=== PATIENT | male | born 1975 | race Caucasian/White ===

== ENCOUNTER 2017-07-24 14:58 | Emergency (ER) | payer OTHER ==
[~2017-07-24] VITALS: Ht 177.8 cm; Wt 72.8 kg
[2017-07-24 15:07] VITALS: BP 114/59; PULSE 103; RESP 16; TEMP 98.7; O2SAT 96
[2017-07-24] MEDS ORDERED: SODIUM CHLORIDE 0.9% FLUSH 10 ML FLUSH IV FLUSH PRN (15:15)
[2017-07-24 15:30] VITALS: RESP 18; O2SAT 95
[2017-07-24] MEDS ORDERED: KETOROLAC TROMETHAMINE 30 MG/ML (IVP) VIAL IV PUSH ONE (15:30)
[2017-07-24 15:53] LABS: AUTOMATED NEUTROPHIL # 6.4 TH/MM3 (1.8-7.7); BASOPHIL # 0.4 TH/MM3 (0-0.2); BASOPHIL % 3.4 % (0.0-2.0); EOSINOPHIL # 0.4 TH/MM3 (0-0.4); EOSINOPHIL % 3.7 % (0.0-4.0); HEMATOCRIT 44.3 % (39.0-51.0); HEMOGLOBIN 15.1 GM/DL (13.0-17.0); LYMPH % 19.8 % (9.0-44.0); MEAN CELL VOLUME 93.5 FL (80.0-100.0); MEAN CORPUSCULAR HEMOGLOBIN 31.9 PG (27.0-34.0); MEAN CORPUSCULAR HGB CONC 34.2 % (32.0-36.0); MEAN PLATELET VOLUME 8.1 FL (7.0-11.0); MONO % 10.2 % (0.0-8.0); MONOCYTE # 1.1 TH/MM3 (0-0.9); NEUT % 62.9 % (16.0-70.0); PLATELET COUNT 230 TH/MM3 (150-450); RED BLOOD COUNT 4.74 MIL/MM3 (4.50-5.90); RED CELL DISTRIBUTION WIDTH 12.7 % (11.6-17.2); WHITE BLOOD COUNT 10.3 TH/MM3 (4.0-11.0)
[2017-07-24 16:05] LABS: CHLORIDE 104 MEQ/L (98-107); SODIUM (NA) 137 MEQ/L (136-145)
[2017-07-24 16:08] LABS: CALCIUM 8.9 MG/DL (8.5-10.1)
[2017-07-24 16:09] LABS: ALBUMIN 3.9 GM/DL (3.4-5.0); BICARBONATE 25.9 MEQ/L (21.0-32.0); BLOOD UREA NITROGEN 18 MG/DL (7-18); GLUCOSE,RANDOM 91 MG/DL (74-106)
[2017-07-24 16:12] LABS: ALT (GPT) 14 U/L (12-78); AST (GOT) 26 U/L (15-37); GLOMERULAR FILTRATION RATE 82 ML/MIN (>89)
[2017-07-24 16:13] LABS: TOTAL BILIRUBIN ADULT 0.4 MG/DL (0.2-1.0)
[2017-07-24 16:14] LABS: TOTAL PROTEIN 7.4 GM/DL (6.4-8.2)
[2017-07-24 16:15] LABS: ALKALINE PHOSPHATASE 62 U/L (45-117)
--- NOTE | 2017-07-24 16:25 | PD ---
HPI Chief Complaint: Abdominal Pain Time Seen by Provider: 15:23 Travel History International Travel<30 days: No Contact w/Intl Traveler<30days: No Traveled to known affect area: No History of Present Illness HPI Patient 42-year-old male presents emergency department for evaluation of right upper quadrant abdominal pain on and off for the past few weeks bordering a months. Patient states that the pain became fairly severe over the past 2 nights, doubling him over and causing some diaphoresis as well as nausea and a few episodes of nonbilious nonbloody emesis. He is also endorsing some nonbilious and no melanotic stools which are loose. States currently the pain is still there but not as severe as it was before. 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 States he has never had any cholecystitis, kidney stones. Denies any chest pain shortness of breath. States the pain waxing and waning, duration as above , associated signs and symptoms as above, no radiation. PFSH Past Medical History Medical History: Denies Significant Hx Tetanus Vaccination: < 5 Years Influenza Vaccination: No Social History Alcohol Use: Yes (WEEKENDS) Tobacco Use: Yes (1PPD ) Substance Use: No Allergies-Medications (Allergen,Severity, Reaction): Coded Allergies: amoxicillin (Verified Allergy, Intermediate, rash, 07/24/17) Penicillins (Verified Allergy, Unknown, 07/24/17) Reported Meds & Prescriptions Reported Meds & Active Scripts Active Pepcid (Famotidine) 20 Mg Tab 20 Mg PO BID Zofran (Ondansetron HCl) 4 Mg Tab 4 Mg PO Q6HR PRN Review of Systems Except as stated in HPI: all other systems reviewed are Neg Physical Exam Narrative GENERAL: Well-developed well-nourished, thin, smells of cigarette smoke in obvious distress sitting upright in a stretcher and seen ambulating to the exam room texting on his cell phone SKIN: Focused skin assessment warm/dry. HEAD: Atraumatic. Normocephalic. EYES: Pupils equal and round. No scleral icterus. No injection or drainage. ENT: No nasal bleeding or discharge. Mucous membranes pink and moist. NECK: Trachea midline. No JVD. CARDIOVASCULAR: Regular rate and rhythm. No murmur appreciated. RESPIRATORY: No accessory muscle use. Clear to auscultation. Breath sounds equal bilaterally. GASTROINTESTINAL: Abdomen soft, minimally tender in the right upper quadrant but his Szymanski sign is negative, nondistended. Hepatic and splenic margins not palpable. CVA tenderness negative, Rovsing sign negative, MUSCULOSKELETAL: No obvious deformities. No clubbing. No cyanosis. No edema. NEUROLOGICAL: Awake and alert. No obvious cranial nerve deficits. Motor grossly within normal limits. Normal speech. PSYCHIATRIC: Appropriate mood and affect; insight and judgment normal. Data Data Last Documented VS Vital Signs Date Time Temp Pulse Resp B/P (MAP) Pulse Ox O2 Delivery O2 Flow Rate FiO2 07/24/17 18:19 114/49 (70) 07/24/17 17:56 80 16 97 07/24/17 15:30 Room Air 07/24/17 15:07 98.7 Orders Orders Complete Blood Count With Diff (07/24/17 15:12) Comprehensive Metabolic Panel (07/24/17 15:12) Lipase (07/24/17 15:12) Iv Access Insert/Monitor (07/24/17 15:12) Ecg Monitoring (07/24/17 15:12) Oximetry (07/24/17 15:12) Sodium Chloride 0.9% Flush (Ns Flush) (07/24/17 15:15) Ketorolac Inj (Toradol Inj) (07/24/17 15:30) Urinalysis - C+S If Indicated (07/24/17 15:38) Ed Discharge Order (07/24/17 17:57) Labs Laboratory Tests Test 07/24/17 15:45 07/24/17 17:20 White Blood Count 10.3 TH/MM3 Red Blood Count 4.74 MIL/MM3 Hemoglobin 15.1 GM/DL Hematocrit 44.3 % Mean Corpuscular Volume 93.5 FL Mean Corpuscular Hemoglobin 31.9 PG Mean Corpuscular Hemoglobin Concent 34.2 % Red Cell Distribution Width 12.7 % Platelet Count 230 TH/MM3 Mean Platelet Volume 8.1 FL Neutrophils (%) (Auto) 62.9 % Lymphocytes (%) (Auto) 19.8 % Monocytes (%) (Auto) 10.2 % Eosinophils (%) (Auto) 3.7 % Basophils (%) (Auto) 3.4 % Neutrophils # (Auto) 6.4 TH/MM3 Lymphocytes # (Auto) 2.0 TH/MM3 Monocytes # (Auto) 1.1 TH/MM3 Eosinophils # (Auto) 0.4 TH/MM3 Basophils # (Auto) 0.4 TH/MM3 CBC Comment DIFF FINAL Differential Comment Blood Urea Nitrogen 18 MG/DL Creatinine 1.00 MG/DL Random Glucose 91 MG/DL Total Protein 7.4 GM/DL Albumin 3.9 GM/DL Calcium Level 8.9 MG/DL Alkaline Phosphatase 62 U/L Aspartate Amino Transf (AST/SGOT) 26 U/L Alanine Aminotransferase (ALT/SGPT) 14 U/L Total Bilirubin 0.4 MG/DL Sodium Level 137 MEQ/L Potassium Level 3.9 MEQ/L Chloride Level 104 MEQ/L Carbon Dioxide Level 25.9 MEQ/L Anion Gap 7 MEQ/L Estimat Glomerular Filtration Rate 82 ML/MIN Lipase 70 U/L Urine Color YELLOW Urine Turbidity CLEAR Urine pH 5.5 Urine Specific [place] GREATER/EQUAL 1.030 Urine Protein TRACE mg/dL Urine Glucose (UA) NEG mg/dL Urine Ketones TRACE mg/dL Urine Occult Blood NEG Urine Nitrite NEG Urine Bilirubin NEG Urine Urobilinogen 0.2 MG/DL Urine Leukocyte Esterase NEG Urine RBC 0-3 /hpf Urine WBC 0-2 /hpf Urine Squamous Epithelial Cells 0-5 /hpf Microscopic Urinalysis Comment CULT NOT INDICATED MDM Medical Decision Making Medical Screen Exam Complete: Yes Emergency Medical Condition: Yes Differential Diagnosis Gastritis, gastroenteritis, cholecystitis, pancreatitis, kidney stone Narrative Course Patient room to the emergency department, he appears quite comfortable, basic labs reassuring, UA negative, no elevation of liver enzymes, creatinine is 1.0. I discussed with the patient the differential diagnosis included that he has a smoking history and malignancy needs to be considered as well but I think this is unlikely based on his physical exam and his history. Discussed the possibility for CAT scan and after discussion of risks of radiation exposure versus following up with his primary care physician expectant management he chose the latter. Discussed if you should change his mind about a CAT scan he should return to the emergency department any time for repeat evaluation. At this time he is reevaluated is sleeping soundly and arouses to voice. He does not appear to be in any acute distress has a benign abdominal examination and is stable for discharge. Diagnosis Primary Impression: RUQ abdominal pain Additional Instructions: Take Tylenol 500 mg every 8 hours as needed for pain or ibuprofen 200 mg every 6 hours as needed for pain. Follow-up with your primary care physician. Med/Other Pt SpecificInfo: Prescription(s) given Scripts Famotidine (Pepcid) 20 Mg Tab 20 MG PO BID, #60 TAB 0 Refills Prov: Ahmte Vazquez MD 07/24/17 Ondansetron (Zofran) 4 Mg Tab 4 MG PO Q6HR Y for NAUSEA OR VOMITING, #20 TAB 0 Refills Prov: Ahmet Vazquez MD 07/24/17 Disposition: 01 DISCHARGE HOME Condition: Stable Ahmet Vazquez MD Jul 24, 2017 16:25
[2017-07-24 17:32] LABS: BILIRUBIN, URINE NEG (NEG); BLOOD, URINE NEG (NEG); GLUCOSE,URINE NEG (NEG); KETONE, URINE TRACE mg/dL (NEG); NITRITE,URINE NEG (NEG); PH, URINE 5.5 (5.0-8.5); URINE COLOR YELLOW (YELLW/STRAW); URINE LEUKOCYTE ESTERASE NEG (NEG)
[2017-07-24 17:37] LABS: RBC, URINE 0-3 /hpf (0-3); SQUAMOUS EPITHELIAL CELL URINE 0-5 /hpf (0-5); WBC, URINE 0-2 /hpf (0-5)
[2017-07-24 17:56] VITALS: BP 92/49; PULSE 80; RESP 16; O2SAT 97
[2017-07-24] MEDS ORDERED: FAMO1TAB37 PO (18:04)
[2017-07-24] MEDS ORDERED: ZOFR4TAB PO (18:04)
[2017-07-24 18:19] VITALS: BP 114/49
== END 2017-07-24 18:21 | disposition home or self-care (01) ==
LOC: PHED 14:58
DX: R10.11 Right upper quadrant pain (principal); F17.200 Nicotine dependence, unspecified, uncomplicated
CPT/HCPCS: 80053; 81001; 83690; 85025; 96374; 99284; J1885